=== PATIENT | male | born 2000 | race Asian ===

== ENCOUNTER 2019-07-28 22:09 | Emergency (ER) | payer SELFPAY, MEDICAID ==
[~2019-07-28] VITALS: Ht 188 cm; Wt 145.1 kg
[2019-07-28 22:14] VITALS: BP 115/64
--- NOTE | 2019-07-28 22:18 | NUR ---
ED Nurse Note: pt presents to ED accompanied by LIO zuñiga for medical clearance. pt denies any px, dyspnea or SOB. He has a quarter sized bruise to the right side of his face and an abrasion to the R cheek that he states stings.
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
--- NOTE | 2019-07-28 22:28 | NUR ---
ED DC Note: pt has been cleared by ERMD. I cleaned the abrasion on his R eye brow and applied topical abx ointment per ERMD orders. pt has been d/c with [facility] department officers. Pt able to ambulate and took all belongings. ID band remvoed. pt stable AOX4 in NAD
[2019-07-28] MEDS ORDERED: Neosporin Oint Ud Pkt TOPIC ONE (22:30)
[2019-07-28 22:32] VITALS: BP 115/64
== END 2019-07-28 22:28 ==
LOC: EMR 22:25
DX: S00.211A Abrasion of right eyelid and periocular area, initial encounter (principal); W22.8XXA Striking against or struck by other objects, initial encounter; Y92.9 Unspecified place or not applicable
CPT/HCPCS: 99282